=== PATIENT | female | born 1965 | race Caucasian/White ===

== ENCOUNTER 2016-12-06 07:04 | Day surgery (SDC) | payer MEDICARE, OTHER ==
[2016-12-06] MEDS ORDERED: PROPOFOL INJ 200 MG/20 ML VIAL IV ONE (07:25)
[2016-12-06 09:17] VITALS: BP 145/71
--- NOTE | 2016-12-06 14:34 | Operative Report ---
Operative Report DATE OF SURGERY: 12/06/16 Operative Report: The risks benefits and alternatives of the procedure explained to the patient in detail and informed consent is obtained.A GIF Olympus video scope was inserted into the patient's mouth and hypopharynx, the esophagus is identified intubated and insufflated, the scope was then advanced through the esophagus stomach and duodenum, retroflexion maneuver is done, the esophagus stomach and first and second portions of the duodenum examined PREOPERATIVE DIAGNOSIS: Epigastric pain rule out peptic ulcer disease POSTOPERATIVE DIAGNOSIS: Gastritis, esophagitis. Biopsies obtained to rule out Helicobacter pylori OPERATION: EGD with biopsy SURGEON: ALLAN CARNES ANESTHESIA: LMAC TISSUE REMOVED OR ALTERED: Gastric mucosal specimen obtained COMPLICATIONS: None. ESTIMATED BLOOD LOSS: None. INTRAOPERATIVE FINDINGS: As described above. But no ulcers PROCEDURE: Patient tolerated procedure well. No immediate postprocedure complications are noted. Patient discharged in good condition. Discharge date 12/06/2016. Discharge diet: Regular. Discharge activity: Regular. 2-3 week follow-up to discuss findings. Patient is instructed to call the office or proceed to the emergency room should there be any further problems or questions. We will await pathology.
== END 2016-12-06 09:15 | disposition home or self-care (01) ==
LOC: END 07:04
PROVIDERS: ATTEND Internal Medicine Gastroenterology
PROC: 0DB68ZX Excision of Stomach, Via Natural or Artificial Opening Endoscopic, Diagnostic (ICD-10-PCS; principal; 2016-12-06 08:00)
DX: R10.13 Epigastric pain (principal); K29.50 Unspecified chronic gastritis without bleeding; E03.9 Hypothyroidism, unspecified; I10 Essential (primary) hypertension; G35 Multiple sclerosis; M81.0 Age-related osteoporosis without current pathological fracture; Z79.899 Other long term (current) drug therapy; Z79.891 Long term (current) use of opiate analgesic; Z88.8 Allergy status to other drugs, medicaments and biological substances
CPT/HCPCS: 43239; 88342 ×2; 88305 ×2; J2704; 740

== ENCOUNTER → 2017-06-16 | Outpatient (CLI) | payer MEDICARE, OTHER ==
--- NOTE | 2017-06-17 08:33 | RADIOLOGY REPORT (SQ) ---
EXAM DESCRIPTION: MRI LT UPPER JOINT WITHOUT COMPLETED DATE/TIME: 06/16/2017 7:18 pm REASON FOR STUDY: Colles' fracture of left radius, initial encounter for closed fracture S52.532A C OLLES' FRACTURE OF LEFT RADIUS, INIT FOR CLOS FX COMPARISON: None. TECHNIQUE: Left wrist images acquired and stored on PACS. Multiplanar images include fat sensitive sequences as T1, fluid sensitive sequences as FST2/STIR, cartilage sensitive sequences as FSPD, gradi ent echo sequences. LIMITATIONS: Patient motion in the scanner. No plain films available. FINDINGS: Studies very limited due to the amount of motion. The most significant finding is abnorma l decreased T1 and increased T2 signal in the lunate. Neutral ulnar variance. No evidence of displa adriana fracture. No obvious acute ligament or tendon injury. Distal radioulnar joint intact. No obvio us TFCC tear. IMPRESSION: AVN of the lunate. TECHNICAL DOCUMENTATION: JOB ID: [id number] [employer]- All Rights Reserved
== END ==
LOC: RAD 17:35
PROVIDERS: ATTEND Orthopaedic Surgery
DX: S52.532A Colles' fracture of left radius, initial encounter for closed fracture (principal); X58.XXXA Exposure to other specified factors, initial encounter

== ENCOUNTER 2017-11-14 09:30 | Day surgery (SDC) | payer MEDICARE, OTHER ==
[~2017-11-14 09:30] MED LIST: PROPOFOL INJ 200 MG/20 ML VIAL IV ONE
[2017-11-14 11:34] VITALS: BP 163/66
--- NOTE | 2017-11-14 12:43 | Operative Report ---
Operative Report DATE OF SURGERY: 11/14/17 Operative Report: The risks, benefits and alternatives of the procedure including risks of bleeding, perforation requiring surgery are explained to the patient in detail and informed consent is obtained. Patient is brought back to the endoscopy suite and placed in the left, lateral decubital position. Timeout was called. Propofol medication is administered. A rectal examination is done which did not reveal any masses, tears or fissures. An Olympus videoscope was inserted into the patient's rectum. The scope was then carefully advanced all the way to the cecum. The cecum was identified by the usual anatomical landmarks including the ileocecal valve as well as the appendiceal office. Photodocumentation is obtained. Prep is good. Scope was then sequentially pulled back via the rest segments of the colon including the ascending colon, hepatic flexure, transverse colon, splenic flexure, descending colon and finally into the rectosigmoid portions of the colon. Retroflexion maneuvers performed. PREOPERATIVE DIAGNOSIS: Change in bowel habits POSTOPERATIVE DIAGNOSIS: Proctitis status post biopsy rule out ulcerative colitis OPERATION: Colonoscopy with biopsy SURGEON: ALLAN CARNES ANESTHESIA: LMAC TISSUE REMOVED OR ALTERED: As noted above. COMPLICATIONS: None. ESTIMATED BLOOD LOSS: None. INTRAOPERATIVE FINDINGS: As noted above. PROCEDURE: Patient tolerated procedure well. No immediate postprocedure complications are noted. Patient discharged in good condition. Discharge date 11/14/2017. Discharge diet: Regular. Discharge activity: Regular. 2-3 week follow-up to discuss findings. Patient is instructed to call the office or proceed to the emergency room should there be any further problems or questions. We will wait on the results of the pathology.
== END 2017-11-14 11:45 | disposition home or self-care (01) ==
LOC: END 09:30
PROVIDERS: ATTEND Internal Medicine Gastroenterology
DX: K62.89 Other specified diseases of anus and rectum (principal); K52.9 Noninfective gastroenteritis and colitis, unspecified; R19.4 Change in bowel habit; E03.9 Hypothyroidism, unspecified; I10 Essential (primary) hypertension; Z79.899 Other long term (current) drug therapy; Z13.89 Encounter for screening for other disorder
CPT/HCPCS: 45380; 88305 ×2; J2704; 811

== ENCOUNTER 2018-06-14 08:09 | Day surgery (SDC) | payer MEDICARE, OTHER ==
[~2018-06-14 08:09] MED LIST changes: +DIPHENHYDRAMINE HCL 50 MG/ML VIAL ONE; +EPINEPHRINE INJ 1 MG/10 ML DISP.SYRIN ONE; +FLUMAZENIL INJ 0.5 MG/5 ML VIAL ONE; +GLUCAGON,HUMAN RECOMB 1 MG INJ ONE; +MIDAZOLAM 2 MG/2 ML INJ ONE; +NALOXONE HCL INJ/PF 0.4 MG/1 ML SDV ONE; +ONDANSETRON HCL INJ/PF 4 MG/2 ML SDV ONE; -PROPOFOL INJ 200 MG/20 ML VIAL IV ONE
[2018-06-14] MEDS: FENTANYL CITRATE INJ/PF 100 MCG/2 ML AMPUL ONE ×2 (08:50→08:52)
--- NOTE | 2018-06-14 08:58 | Operative Report ---
Operative Report DATE OF SURGERY: 06/14/18 Operative Report: The risks benefits and alternatives of the procedure explained to the patient in detail and informed consent is obtained.A GIF Olympus video scope was inserted into the patient's mouth and hypopharynx, the esophagus is identified intubated and insufflated, the scope was then advanced through the esophagus stomach and duodenum, retroflexion maneuver is done, the esophagus stomach and first and second portions of the duodenum examined. PREOPERATIVE DIAGNOSIS: Abdominal bloating, dyspepsia POSTOPERATIVE DIAGNOSIS: Gastritis status post biopsy for Helicobacter pylori. Hiatal hernia OPERATION: EGD with biopsy SURGEON: ALLAN CARNES ANESTHESIA: Moderate Sedation - 2 mg of Versed, 50 mcg of fentanyl. Conscious sedation monitoring time 30 minutes. TISSUE REMOVED OR ALTERED: As noted above. COMPLICATIONS: None. ESTIMATED BLOOD LOSS: None. INTRAOPERATIVE FINDINGS: As noted above. PROCEDURE: Patient tolerated the procedure well. No immediate postprocedure complications are noted. Patient discharged in good condition. Discharge date 06/14/2018. Discharge diet: Regular. Discharge activity: Regular. 2-3-week follow-up to discuss findings. Patient is instructed call the office or proceed to the emergency room should there be any further problems or questions. Wait on the pathology
[2018-06-14 10:22] VITALS: BP 151/66
== END 2018-06-14 10:15 | disposition home or self-care (01) ==
LOC: END 08:09
PROVIDERS: ATTEND Internal Medicine Gastroenterology
DX: K29.50 Unspecified chronic gastritis without bleeding (principal); K44.9 Diaphragmatic hernia without obstruction or gangrene; E03.9 Hypothyroidism, unspecified; I10 Essential (primary) hypertension; I05.0 Rheumatic mitral stenosis; Z79.899 Other long term (current) drug therapy; Z88.1 Allergy status to other antibiotic agents; Z99.3 Dependence on wheelchair
CPT/HCPCS: 43239; 88305 ×2; J2250; J3010; J0171; J1200; J1610; J2310; J2405; J3490

== ENCOUNTER 2019-05-21 11:10 | Day surgery (SDC) | payer MEDICARE, OTHER ==
[2019-05-21] MEDS ORDERED: DIPHENHYDRAMINE HCL 50 MG/ML VIAL ONE (12:14)
[2019-05-21] MEDS ORDERED: ONDANSETRON HCL INJ/PF 4 MG/2 ML SDV ONE (12:14)
[2019-05-21] MEDS ORDERED: FENTANYL CITRATE INJ/PF 100 MCG/2 ML AMPUL ONE (12:14)
[2019-05-21] MEDS ORDERED: GLUCAGON,HUMAN RECOMB 1 MG INJ ONE (12:15)
[2019-05-21] MEDS ORDERED: NALOXONE HCL INJ/PF 0.4 MG/1 ML SDV ONE (12:15)
[2019-05-21] MEDS ORDERED: EPINEPHRINE INJ 1 MG/10 ML DISP.SYRIN ONE (12:15)
[2019-05-21] MEDS ORDERED: FLUMAZENIL INJ 0.5 MG/5 ML VIAL ONE (12:15)
[2019-05-21] MEDS: MIDAZOLAM 2 MG/2 ML INJ ONE ×2 (12:36→12:38)
--- NOTE | 2019-05-21 12:53 | Operative Report ---
Operative Report DATE OF SURGERY: 05/21/19 Operative Report: The risk, benefits and alternatives of the procedure including the risk of bleeding, perforation requiring surgery have been explained to the patient in detail and informed consent has been obtained. Patient is taken back to the endoscopy suite and placed in a left, lateral decubital position. Conscious sedation medications are provided. A pediatric colonoscope was inserted into the patient's rectum and advanced all the way to the descending colon area. There is proctitis noted from 0 to 15 cm. Biopsies are obtained. No active bleeding is seen. Retroflexion does reveal some internal hemorrhoids. PREOPERATIVE DIAGNOSIS: Proctitis POSTOPERATIVE DIAGNOSIS: Colon inflammation from 0 to 15 cm status post biopsy OPERATION: Flexible sigmoidoscopy with biopsy SURGEON: ALLAN CARNES ANESTHESIA: Moderate Sedation - 3 mg of Versed, 25 mcg of fentanyl. Conscious sedation monitoring time 30 minutes. TISSUE REMOVED OR ALTERED: As noted above. COMPLICATIONS: None. ESTIMATED BLOOD LOSS: None. INTRAOPERATIVE FINDINGS: As noted above. PROCEDURE: Patient tolerated the procedure well. No immediate postprocedure complications are noted. Patient is discharged in good condition. Discharge date 05/21/2019. Discharge diet: Regular. Discharge activity: Regular. 2 to 3-week follow-up to discuss findings. Patient is instructed to call the office or proceed to the emergency room should there be any further problems or questions. Wait on the pathology.
[2019-05-21 13:47] VITALS: BP 152/58
== END 2019-05-21 13:40 | disposition home or self-care (01) ==
LOC: END 11:10
PROVIDERS: ATTEND Internal Medicine Gastroenterology
DX: K62.89 Other specified diseases of anus and rectum (principal); K52.9 Noninfective gastroenteritis and colitis, unspecified; E03.9 Hypothyroidism, unspecified; I10 Essential (primary) hypertension; Z79.899 Other long term (current) drug therapy
CPT/HCPCS: 45331; 88305 ×2; J2250; J3010; J0171; J1200; J1610; J2310; J2405; J3490